=== PATIENT | male | born 1955 | race Caucasian/White ===

== ENCOUNTER 2019-11-20 12:03 | Emergency (ER) | payer OTHER ==
[2019-11-20 12:15] VITALS: BP 147/89
[2019-11-20] MEDS ORDERED: CHERRY SYRUP 10 ML UDC PO ONE (12:50)
[2019-11-20] MEDS ORDERED: DEXAMETHASONE 10 MG/ML VIAL PO STA (12:50)
[2019-11-20] MEDS ORDERED: KETOROLAC 60 MG/2 ML VIAL IM STA (12:51)
--- NOTE | 2019-11-20 12:53 | ED Physician Documentation ---
PD HPI NECK PAIN - Stated complaint Stated Complaint: BACK/ARM PAIN - Chief complaint Chief Complaint: Back Pain - History obtained from History obtained from: Patient, Family - History of Present Illness Timing - onset: How many weeks ago (3) Timing - duration: Weeks (3) Timing - details: Gradual onset, Still present Location: Lower, Right Quality: Pain, Spasm, Sharp, Similar to prior episodes Associated symptoms: Numbness. No: Fever, Weakness, Incontinent of urine, Unable to urinate, Hematuria Improves with: Rest, Position, Meds Worsened by: Movement Similar symptoms before: Has not had sx before Recently seen: Clinic - Additional information Additional information: 64-year-old male is developed some pain in his neck on the right side radiating down into his right arm and he is developed some numbness to the right hand and thumb. He has been in to see his regular doctor and he has been into see the orthopedic doctor and he has been placed on some pain medication a muscle relaxant and some anti-inflammatory. He is finding the anti-inflammatory is somewhat helpful for the pain the at narcotic is not. He has had an MRI done of his neck and has disc disease at the appropriate levels. He has been in talks with his orthopedic surgeon about potentially having epidural steroid injection. He has a plan to follow-up with his orthopedic doctor tomorrow. He is in too much pain today. He did take a course of prednisone 3 weeks ago he found this mildly helpful. Review of Systems Constitutional: denies: Fever, Chills, Myalgias Eyes: denies: Loss of vision, Decreased vision Ears: denies: Ear pain Nose: denies: Rhinorrhea / runny nose, Congestion Throat: denies: Sore throat Cardiac: denies: Chest pain / pressure Respiratory: denies: Dyspnea, Cough GI: denies: Abdominal Pain, Nausea, Vomiting : denies: Dysuria, Frequency Skin: denies: Rash Musculoskeletal: reports: Neck pain, Back pain, Extremity pain Neurologic: reports: Numbness. denies: Generalized weakness, Focal weakness, Difficulty speaking, Near syncope PD PAST MEDICAL HISTORY - Present Medications Home Medications: Ambulatory Orders Medication Instructions Recorded Confirmed Aspirin 81 mg PO DAILY 11/20/19 11/20/19 Atorvastatin [Lipitor] 20 mg PO DAILY 11/20/19 11/20/19 Cyclobenzaprine HCl 10 mg PO BID 11/20/19 11/20/[address] [Voltaren] 75 mg PO BID 11/20/19 11/20/19 Fenofibrate [Tricor] 2 tab PO QD 11/20/19 11/20/19 Metoprolol Succinate 25 mg PO DAILY 11/20/19 11/20/19 Oxycodone HCl/Acetaminophen 1 each PO TID 11/20/19 11/20/19 [Percocet 5-325 mg Tablet] dexAMETHasone [Decadron] 4 mg PO DAILY #5 tablet 11/20/19 predniSONE [Prednisone 21-TAB dose 0 mg PO DAILY 11/20/19 11/20/19 pack] - Allergies Allergies/Adverse Reactions: Allergies Allergy/AdvReac Type Severity Reaction Status Date / Time No Known Drug Allergies Allergy Verified 11/20/19 12:15 PD ED PE NORMAL - Vitals Vital signs reviewed: Yes (hypertensive ) - General General: Alert and oriented X 3, Well developed/nourished, Other (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) - HEENT HEENT: Atraumatic, PERRL, EOMI - Neck Neck: No bony TTP, Other (tenderness to the paraspinal muscles of the lower cervical spine ) - Respiratory Respiratory: No respiratory distress - Derm Derm: Normal color, Warm and dry, No rash - Extremities Extremities: No deformity, No edema - Neuro Neuro: Alert and oriented X 3, 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 He has follow-up tomorrow with his orthopedic surgeon to consider epidural steroid injection today we will administer dexamethasone 10 mg and Toradol 60 mg. I have encouraged patient to stay on top of his pain once he is able to gain control. Departure - Departure Disposition: 01 Home, Self Care Clinical Impression: Cervical radiculopathy Condition: Stable Instructions: ED Cervical Radiculopathy Follow-Up: EUSEBIO POWELL [Primary Care Provider] - Prescriptions: dexAMETHasone [Decadron] 4 mg PO DAILY #5 tablet Discharge Date/Time: 11/20/19 13:32
== END 2019-11-20 13:32 | disposition home or self-care (01) ==
LOC: ED 12:03
DX: M54.12 Radiculopathy, cervical region (principal)
CPT/HCPCS: 96372; 99283; 99284; A9270

== ENCOUNTER 2020-09-12 15:15 | Outpatient (CLI) | payer OTHER | END 2020-09-12 15:16 | disposition home or self-care (01) | LOC: COV 15:15 | PROVIDERS: ATTEND Family Medicine | DX: R05 Cough (principal); R07.0 Pain in throat; R09.81 Nasal congestion; Z20.828 Contact with and (suspected) exposure to other viral communicable diseases ==